=== PATIENT | female | born 1990 | race African-American/Black ===

== ENCOUNTER 2016-04-25 11:54 | Emergency (ER) | payer OTHER ==
[~2016-04-25] VITALS: Ht 170.2 cm; Wt 102.0 kg
[~2016-04-25 11:54] MED LIST: NONE REPORTED
[2016-04-25 13:03] VITALS: BP 118/66
[2016-04-25] MEDS ORDERED: DIPHENHYDRAMINE 25MG CAPSULE PO ONE (15:45)
[2016-04-25] MEDS ORDERED: KETOROLAC 60MG/2ML VIAL IM ONE (15:45)
[2016-04-25] MEDS ORDERED: PROCHLORPERAZINE MALEATE 10MG TABLET PO ONE (15:45)
== END 2016-04-25 16:39 | disposition home or self-care (01) ==
LOC: ER 14:16
DX: G43.909 Migraine, unspecified, not intractable, without status migrainosus (principal)
CPT/HCPCS: 96372; 99283; J1885; Q0163; Q0164

== ENCOUNTER 2016-06-16 09:01 | Emergency (ER) | payer OTHER ==
[~2016-06-16] VITALS: Ht 170.2 cm; Wt 100.0 kg
[2016-06-16] MEDS ORDERED: KETOROLAC 30MG/ML VIAL IM ONE (10:30)
[2016-06-16] MEDS ORDERED: CARISOPRODOL 350 MG TABLET PO ONE (10:30)
[2016-06-16 10:47] VITALS: BP 117/78
== END 2016-06-16 11:47 | disposition home or self-care (01) ==
LOC: ER 10:07
DX: S10.93XA Contusion of unspecified part of neck, initial encounter (principal); S40.012A Contusion of left shoulder, initial encounter; S40.011A Contusion of right shoulder, initial encounter; X58.XXXA Exposure to other specified factors, initial encounter; Y92.018 Other place in single-family (private) house as the place of occurrence of the external cause
CPT/HCPCS: 81025; 96372; 99283; J1885; Z7610